=== PATIENT | female | born 2000 | race Two or more races ===

== ENCOUNTER 2022-03-20 17:30 | Emergency (ER) | payer MEDICARE, MEDICAID ==
[~2022-03-20] VITALS: Ht 167.6 cm; Wt 101.0 kg
[2022-03-20 18:55] LABS: BASOPHILS % 0.6 % (0.0-2.0); EOSINOPHILS % 0.1 % (0.0-5.0); HEMATOCRIT. 39.9 % (36.0-48.0); HEMOGLOBIN. 13.3 g/dL (12.0-16.0); MEAN CORPUSCULAR HEMOGLOBIN 29.8 pg (28.0-32.0); MEAN CORPUSCULAR VOLUME 89.3 fL (81.0-99.0); MEAN PLATELET VOLUME 9.3 fl (7.4-10.4); MONOCYTES % 7.3 % (2.0-8.0); PLATELET 324 x1000/uL (130-400); RED BLOOD CELL COUNT 4.47 mill/uL (4.2-5.4); RED CELL DISTRIBUTION WIDTH 14.6 % (11.6-14.6)
[2022-03-20 18:59] LABS: CHLORIDE 103 mEq/L (98-107)
[2022-03-20 19:05] LABS: ETHANOL BLOOD < 10 mg/dL
[2022-03-20] MEDS ORDERED: POTASSIUM CHLORIDE 20MEQ TABLET SR PO NR (19:15)
[2022-03-20 19:22] LABS: HCG SCREEN NEGATIVE
[2022-03-20 20:10] LABS: CLARITY URINE CLEAR (CLEAR); COLOR URINE YELLOW (YELLOW); KETONES URINE 3+ (NEGATIVE); LEUKOCYTE ESTERASE URINE NEGATIVE (NEGATIVE); NITRITE URINE NEGATIVE (NEGATIVE); OCCULT BLOOD URINE NEGATIVE (NEGATIVE); PROTEIN URINE 1+ (NEGATIVE); SPECIFIC GRAVITY URINE 1.032 (1.005-1.030)
[2022-03-20 20:49] LABS: *BARBITURATES SCREEN URINE NEGATIVE (NEGATIVE); *BENZODIAZEPINES SCREEN URINE NEGATIVE (NEGATIVE); *COCAINE SCREEN URINE NEGATIVE (NEGATIVE); CANNABINOID URINE SCREEN NEGATIVE (NEGATIVE); METHADONE URINE SCREEN NEGATIVE (NEGATIVE); OPIATES URINE SCREEN NEGATIVE (NEGATIVE); PHENCYCLIDINE URINE SCREEN NEGATIVE (NEGATIVE)
[2022-03-20 21:00] LABS: *AMPHETAMINES SCREEN URINE PRESUMTIVE POSITIVE (NEGATIVE)
[2022-03-21] MEDS ORDERED: ZIPRASIDONE MESYLATE 20MG/VIAL IM NR (20:45)
[2022-03-21] MEDS: RISPERIDONE 1MG TABLET PO SCH (21:00)
[2022-03-22] MEDS ORDERED: OLANZAPINE 10 MG/VIAL IM NR (06:30)
[2022-03-22] MEDS: RISPERIDONE 1MG TABLET PO SCH ×2 (10:01→21:00)
[2022-03-22] MEDS ORDERED: ACETAMINOPHEN 325MG TABLET PO ONE (12:45)
[2022-03-23] MEDS: RISPERIDONE 1MG TABLET PO SCH ×2 (09:00→21:20)
[2022-03-24 06:32] VITALS: BP 105/55
[2022-03-24] MEDS: RISPERIDONE 1MG TABLET PO SCH (09:26)
== END 2022-03-24 12:15 | disposition home or self-care (01) ==
LOC: ER 17:30
DX: F25.1 Schizoaffective disorder, depressive type (principal); F41.9 Anxiety disorder, unspecified; R45.851 Suicidal ideations; E87.6 Hypokalemia; F15.10 Other stimulant abuse, uncomplicated; Z75.1 Person awaiting admission to adequate facility elsewhere; Z20.822 Contact with and (suspected) exposure to COVID-19
CPT/HCPCS: 36415; 80053; 80305; 80320; 81003; 84703; 85025; 99285; C9803; J3486; U0003; U0005; G0480

== ENCOUNTER 2022-04-03 17:34 | Emergency (ER) | payer MEDICARE, MEDICAID ==
[~2022-04-03] VITALS: Ht 172.7 cm; Wt 89.0 kg
[2022-04-04 00:05] LABS: BASOPHILS % 0.5 % (0.0-2.0); EOSINOPHILS % 0.1 % (0.0-5.0); HEMATOCRIT. 40.3 % (36.0-48.0); HEMOGLOBIN. 13.4 g/dL (12.0-16.0); LYMPHOCYTES % 23.4 % (20.0-50.0); MEAN CORPUSCULAR VOLUME 90.5 fL (81.0-99.0); MEAN PLATELET VOLUME 9.1 fl (7.4-10.4); MONOCYTES % 4.9 % (2.0-8.0); NEUTROPHILS % 71.1 % (40.0-76.0); PLATELET 328 x1000/uL (130-400); RED BLOOD CELL COUNT 4.46 mill/uL (4.2-5.4); RED CELL DISTRIBUTION WIDTH 14.4 % (11.6-14.6)
[2022-04-04 00:06] LABS: CHLORIDE 102 mEq/L (98-107)
[2022-04-04 00:10] LABS: *BARBITURATES SCREEN URINE NEGATIVE (NEGATIVE); *BENZODIAZEPINES SCREEN URINE NEGATIVE (NEGATIVE); *COCAINE SCREEN URINE NEGATIVE (NEGATIVE); CANNABINOID URINE SCREEN NEGATIVE (NEGATIVE); METHADONE URINE SCREEN NEGATIVE (NEGATIVE); OPIATES URINE SCREEN NEGATIVE (NEGATIVE); PHENCYCLIDINE URINE SCREEN NEGATIVE (NEGATIVE)
[2022-04-04 00:11] LABS: HCG SCREEN NEGATIVE
[2022-04-04 00:14] LABS: ETHANOL BLOOD < 10 mg/dL
[2022-04-04 00:16] LABS: *AMPHETAMINES SCREEN URINE PRESUMTIVE POSITIVE (NEGATIVE)
[2022-04-04] MEDS: LITHIUM CARBONATE 150 MG CAPSULE PO SCH ×2 (11:38→17:09)
[2022-04-04] MEDS: RISPERIDONE 1MG TABLET PO SCH (21:20)
[2022-04-04] MEDS ORDERED: LORAZEPAM 2MG/ML CPJ IM ONE (23:00)
[2022-04-05] MEDS: RISPERIDONE 1MG TABLET PO SCH ×2 (10:00→22:00)
[2022-04-05] MEDS: LITHIUM CARBONATE 150 MG CAPSULE PO SCH ×2 (10:00→17:35)
[2022-04-06] MEDS ORDERED: LORAZEPAM 1MG TABLET PO ONE (04:15)
[2022-04-06] MEDS ORDERED: LORAZEPAM 1MG TABLET PO NR (04:45)
[2022-04-06] MEDS ORDERED: RISPERIDONE 1MG TABLET PO SCH (10:29)
[2022-04-06] MEDS ORDERED: LITHIUM CARBONATE 150 MG CAPSULE PO SCH (10:30)
[2022-04-06] MEDS: RISPERIDONE 1MG TABLET PO SCH (16:09)
[2022-04-06] MEDS: LITHIUM CARBONATE 150 MG CAPSULE PO SCH (16:09)
[2022-04-07] MEDS: RISPERIDONE 1MG TABLET PO SCH (09:43)
[2022-04-07] MEDS: LITHIUM CARBONATE 150 MG CAPSULE PO SCH (09:43)
[2022-04-07 11:05] VITALS: BP 131/86
== END 2022-04-07 11:05 | disposition home or self-care (01) ==
LOC: ER 17:34
DX: F25.1 Schizoaffective disorder, depressive type (principal); F41.9 Anxiety disorder, unspecified; Z75.1 Person awaiting admission to adequate facility elsewhere; Z20.822 Contact with and (suspected) exposure to COVID-19
CPT/HCPCS: 36415; 80053; 80305; 80307; 80320; 80329; 81025; 84703; 85025; 99285; C9803; J2060; U0003; U0005; G0480

== ENCOUNTER → 2022-04-17 | Emergency (ER) | payer MEDICARE, MEDICAID ==
[~2022-04-17] VITALS: Ht 167.6 cm; Wt 75.0 kg
[~2022-04-17] MED LIST: RISPERIDONE 1MG TABLET PO SCH
[2022-04-18 07:17] LABS: CHLORIDE 105 mEq/L (98-107)
[2022-04-18 07:28] LABS: ETHANOL BLOOD < 10 mg/dL
[2022-04-18 07:33] LABS: BASOPHILS % 0.5 % (0.0-2.0); EOSINOPHILS % 1.3 % (0.0-5.0); HEMATOCRIT. 36.1 % (36.0-48.0); HEMOGLOBIN. 11.9 g/dL (12.0-16.0); LYMPHOCYTES % 34.9 % (20.0-50.0); MEAN CORPUSCULAR HEMOGLOBIN 29.7 pg (28.0-32.0); MEAN CORPUSCULAR VOLUME 90.5 fL (81.0-99.0); MEAN PLATELET VOLUME 9.7 fl (7.4-10.4); MONOCYTES % 6.3 % (2.0-8.0); PLATELET 303 x1000/uL (130-400); RED BLOOD CELL COUNT 3.99 mill/uL (4.2-5.4); RED CELL DISTRIBUTION WIDTH 13.8 % (11.6-14.6)
[2022-04-18 07:49] LABS: HCG SCREEN NEGATIVE
[2022-04-18 12:56] LABS: CLARITY URINE CLEAR (CLEAR); COLOR URINE YELLOW (YELLOW); KETONES URINE NEGATIVE (NEGATIVE); LEUKOCYTE ESTERASE URINE NEGATIVE (NEGATIVE); NITRITE URINE NEGATIVE (NEGATIVE); OCCULT BLOOD URINE NEGATIVE (NEGATIVE); PROTEIN URINE NEGATIVE (NEGATIVE); SPECIFIC GRAVITY URINE 1.012 (1.005-1.030); UROBILINOGEN URINE 0.2 E.U./dL (0.2-1.0)
[2022-04-18 14:17] LABS: *AMPHETAMINES SCREEN URINE NEGATIVE (NEGATIVE); *BARBITURATES SCREEN URINE NEGATIVE (NEGATIVE); *BENZODIAZEPINES SCREEN URINE NEGATIVE (NEGATIVE); *COCAINE SCREEN URINE NEGATIVE (NEGATIVE); METHADONE URINE SCREEN NEGATIVE (NEGATIVE); OPIATES URINE SCREEN NEGATIVE (NEGATIVE)
[2022-04-18 14:58] LABS: CANNABINOID URINE SCREEN NEGATIVE (NEGATIVE); PHENCYCLIDINE URINE SCREEN NEGATIVE (NEGATIVE)
[2022-04-18 19:39] VITALS: BP 113/71
== END | disposition short-term general hospital (02) ==
LOC: ER 16:42
DX: R45.851 Suicidal ideations (principal); F20.9 Schizophrenia, unspecified; F41.9 Anxiety disorder, unspecified; Z20.822 Contact with and (suspected) exposure to COVID-19; Z75.1 Person awaiting admission to adequate facility elsewhere
CPT/HCPCS: 36415; 80053; 80305; 80307; 80320; 80329; 81003; 84703; 85025; 87426; 99283; C9803; G0480